=== PATIENT | male | born 1935 | race American Indian/Alaskan Native ===

== ENCOUNTER 2020-09-08 03:18 | Observation (INO) | payer MEDICARE ==
[2020-09-08] MEDS ORDERED: dilTIAZem 25 MG/5 ML INJ ONE (03:24)
[2020-09-08] MEDS ORDERED: SODIUM CHLORIDE 0.9% 1000 ML 1,000 ML IV ONE (03:30)
[2020-09-08] MEDS ORDERED: dilTIAZem 25 MG/5 ML INJ IV ONE (03:31)
--- NOTE | 2020-09-08 03:35 | Emergency Department Report ---
ED Shortness of Breath HPI - General Chief Complaint: Dyspnea/Respdistress Stated Complaint: SVT Time Seen by Provider: 09/08/20 03:29 Source: EMS Mode of arrival: Stretcher Limitations: Language Barrier - History of Present Illness Initial Comments: Patient is an 85-year-old male who presents emergency room with complaints of coffee-ground emesis and shortness of breath. Patient called EMS because his symptoms are worsening. Patient brought in by EMS. Report received meds. EMS states the patient was in SVT and they gave adenosine he converted with]. Patient states his shortness of breath better with rest and worse with exertion. Patient states he has stomach cancer in his started vomiting coffee-ground emesis just prior to having shortness of breath. Patient states he is throwing up coffee-ground emesis multiple times. Patient denies fever and chills. Patient denies diarrhea. Patient denies abdominal pain. Patient denies recent travel. Patient denies recent international travel. Patient denies exposure to the novel coronavirus. Patient denies sick contacts. Patient denies fever and chills. Patient denies cough. Patient denies diarrhea. Patient denies coming in contact with anybody with symptoms of the novel coronavirus. MD Complaint: shortness of breath -: Sudden Severity: severe Consistency: constant Improves With: rest Worsens With: exertion, movement Associated Symptoms: nausea/vomiting - Related Data Home Medications Medication Instructions Recorded Confirmed Last Taken Mirtazapine [Remeron 15mg TAB] 15 mg PO QHS 09/08/20 09/08/20 Unknown Montelukast [Singulair] 10 mg PO QPM 09/08/20 09/08/20 Unknown Omeprazole 40 mg PO QDAY 09/08/20 09/08/20 Unknown Simvastatin 20 mg PO QDAY 09/08/20 09/08/20 Unknown Sucralfate 1 gm PO QDAY 09/08/20 09/08/20 Unknown Allergies Allergy/AdvReac Type Severity Reaction Status Date / Time No Known Allergies Allergy Unverified 09/08/20 03:36 ED Review of Systems ROS: Stated complaint: SVT Other details as noted in HPI Constitutional: denies: chills, fever Eyes: denies: eye pain, eye discharge, vision change ENT: denies: ear pain, throat pain Respiratory: see HPI, shortness of breath. denies: cough, wheezing Cardiovascular: denies: chest pain, palpitations Endocrine: no symptoms reported Gastrointestinal: as per HPI, nausea, vomiting, hematemesis. denies: abdominal pain, diarrhea Genitourinary: denies: urgency, dysuria Musculoskeletal: denies: back pain, joint swelling, arthralgia Skin: denies: rash, lesions Neurological: denies: headache, weakness, paresthesias Psychiatric: denies: anxiety, depression Hematological/Lymphatic: denies: easy bleeding, easy bruising ED Past Medical Hx - Medications Home Medications: Home Medications Medication Instructions Recorded Confirmed Last Taken Type Mirtazapine [Remeron 15mg TAB] 15 mg PO QHS 09/08/20 09/08/20 Unknown History Montelukast [Singulair] 10 mg PO QPM 09/08/20 09/08/20 Unknown History Omeprazole 40 mg PO QDAY 09/08/20 09/08/20 Unknown History Simvastatin 20 mg PO QDAY 09/08/20 09/08/20 Unknown History Sucralfate 1 gm PO QDAY 09/08/20 09/08/20 Unknown History ED Physical Exam - General Limitations: Language Barrier General appearance: alert, in no apparent distress - Head Head exam: Present: atraumatic, normocephalic - Eye Eye exam: Present: normal appearance - ENT ENT exam: Present: mucous membranes moist - Neck Neck exam: Present: normal inspection - Respiratory Respiratory exam: Present: normal lung sounds bilaterally. Absent: respiratory distress, wheezes - Cardiovascular Cardiovascular Exam: Present: regular rate, normal rhythm. Absent: systolic murmur, diastolic murmur, rubs, gallop - GI/Abdominal GI/Abdominal exam: Present: soft, normal bowel sounds - Rectal Rectal exam: Present: deferred - Extremities Exam Extremities exam: Present: normal inspection - Back Exam Back exam: Present: normal inspection - Neurological Exam Neurological exam: Present: alert, oriented X3 - Psychiatric Psychiatric exam: Present: normal affect, normal mood - Skin Skin exam: Present: warm, dry, intact, normal color. Absent: rash ED Course Vital Signs 09/08/20 09/08/20 09/08/20 03:24 03:28 03:31 Pulse Rate 153 H 150 H 88 Respiratory 25 H 20 Rate Blood Pressure Blood Pressure 106/72 [Left] O2 Sat by Pulse 100 99 Oximetry 0309/08/20 09/08/20 03:50 04:01 04:15 Pulse Rate 83 82 75 Respiratory 12 15 12 Rate Blood Pressure 134/77 140/73 Blood Pressure [Left] O2 Sat by Pulse 98 99 100 Oximetry 09/08/20 04:31 Pulse Rate 82 Respiratory 17 Rate Blood Pressure 144/75 Blood Pressure [Left] O2 Sat by Pulse 96 Oximetry - Reevaluation(s) Reevaluation #1: Initial evaluation done. Patient in a tachycardic rhythm 145 -155 patient was given 20 mg IV push Cardizem and the patient converted. Patient's heart rate is less than 90. Patient have an EKG done. 09/08/20 03:30 Reevaluation #2: Patient's blood pressure was low after Cardizem and the patient was given fluids and his blood pressure has normalized. Patient's heart rate is still less than 90. Patient will have an EKG done. 09/08/20 03:37 Reevaluation #3: I discussed all results with patient. I discussed plan of care with patient. Patient agrees with plan of care and admission. Patient to be admitted to the hospitalist service. 09/08/20 05:19 - Consultations Consultation #1: Hospitalist consulted for admission. Hospitalist to admit patient. 09/08/20 05:19 ED Medical Decision Making - Lab Data Result diagrams: 09/08/20 03:43 09/08/20 03:43 - EKG Data -: EKG Interpreted by Me EKG shows normal: sinus rhythm, axis, intervals, QRS complexes, ST-T waves Rate: normal - Radiology Data Radiology results: report reviewed interpreted by me: Chest x-ray: No pneumonia, no pneumothorax, no foreign body, no osseous findings, no acute findings CHEST 1 VIEW 09/08/2020 3:53 AM INDICATION / CLINICAL INFORMATION: Dyspnea. COMPARISON: None available. FINDINGS: SUPPORT DEVICES: Right subclavian port appears appropriately positioned. HEART / MEDIASTINUM: No significant abnormality. LUNGS / PLEURA: No significant pulmonary or pleural abnormality. No pneumothorax. ADDITIONAL FINDINGS: Stent projecting over the lower thorax is likely an esophageal stent. IMPRESSION: 1. No acute findings. - Medical Decision Making Patient is an 85-year-old male who presents emergency room with complaints of shortness of breath and coffee-ground emesis. Patient brought in by EMS. EMS found the patient to be in SVT and hypotensive. Patient was given fluids by EMS and adenosine. Patient converted for short period of time and then was back into SVT. After patient arrived, the patient was placed on a desk monitor and found to be in SVT. After found to be in SVT, the patient was given Cardizem push immediately. Patient responded well and the patient's heart rate and rhy thm improved. Patient then became hypotensive was given fluids. Patient's blood pressure responded well to fluids. Patient's blood pressure normalized with fluids. Patient given Dilaudid for back pain. Patient has a history of stomach cancer and esophageal cancer and and the patient has esophageal stents. Patient had labs done which were essentially unremarkable. Patient's chest x- ray was negative for acute findings. I reviewed the chest x-ray personally. Patient had an EKG postconversion and it showed a sinus rhythm with no ST changes. I reviewed the EKG personally. Patient admitted to the hospital service for further evaluation treatment. - Differential Diagnosis Shortness of breath, coffee-ground emesis, SVT, electrolyte imbalance, anem Critical Care Time: Yes Critical care time in (mins) excluding proc time.: 35 Critical care attestation.: If time is entered above; I have spent that time in minutes in the direct care of this critically ill patient, excluding procedure time. Critical Care Time: 35 MINUTES ED Disposition Clinical Impression: SVT (supraventricular tachycardia), SOB (shortness of breath), Coffee ground emesis, Renal insufficiency Hypotension Qualifiers: Hypotension type: unspecified hypotension type Qualified Code(s): I95.9 - Hypotension, unspecified Nausea & vomiting Qualifiers: Vomiting type: unspecified Vomiting Intractability: non-intractable Qualified Code(s): R11.2 - Nausea with vomiting, unspecified Disposition: 09 OP ADMIT IP TO THIS HOSP Is pt being admited?: Yes Does the pt Need Aspirin: No Condition: Critical Time of Disposition: 05:19
--- NOTE | 2020-09-08 04:01 | XRay Report ---
CHEST 1 VIEW 09/08/2020 3:53 AM INDICATION / CLINICAL INFORMATION: Dyspnea. COMPARISON: None available. FINDINGS: SUPPORT DEVICES: Right subclavian port appears appropriately positioned. HEART / MEDIASTINUM: No significant abnormality. LUNGS / PLEURA: No significant pulmonary or pleural abnormality. No pneumothorax. ADDITIONAL FINDINGS: Stent projecting over the lower thorax is likely an esophageal stent. IMPRESSION: 1. No acute findings. Signer Name: Mirza Cueto MD Signed: 09/08/2020 3:57 AM Workstation Name: [id number]
[2020-09-08] MEDS ORDERED: HYDROmorphone 1 MG/1 ML INJ IV ONE (04:02)
[2020-09-08 04:03] LABS: Basophils % (Auto) 0.1 % (0.0-1.8); Hematocrit 42.4 % (35.5-45.6); Lymphocytes # (Auto) 1.4 K/mm3 (1.2-5.4); Lymphocytes % (Auto) 19.7 % (13.4-35.0); Mean Corpuscular HGB Conc 33 % (32-34); Mean Corpuscular Volume 87 fl (84-94); Monocytes # (Auto) 0.6 K/mm3 (0.0-0.8); Monocytes % (Auto) 8.9 % (0.0-7.3); Platelet Count 177 K/mm3 (140-440); Red Blood Count 4.87 M/mm3 (3.65-5.03); Red Cell Distribution Width 15.6 % (13.2-15.2)
[2020-09-08] MEDS ORDERED: ONDANSETRON 4 MG/2 ML INJ IV ONE (04:06)
[2020-09-08 04:23] LABS: Albumin 3.8 g/dL (3.9-5); Calcium 9.5 mg/dL (8.4-10.2)
[2020-09-08] MEDS ORDERED: dilTIAZem 30 MG TAB PO ONE (05:19)
[2020-09-08] MEDS ORDERED: ONDANSETRON 4 MG/2 ML INJ IV PRN (06:27)
[2020-09-08] MEDS ORDERED: ACETAMINOPHEN 325 MG TAB PO PRN (06:27)
[2020-09-08] MEDS ORDERED: SODIUM CHLORIDE 0.9% 1000 ML 1,000 ML IV SCH (06:30)
--- NOTE | 2020-09-08 06:35 | History and Physical Report ---
History of Present Illness Date of examination: 09/08/20 Date of admission: 09/08/20 05:22 Chief complaint: Coffee-ground emesis Shortness of breath History of present illness: 85-year-old [place]er male with known history of stomach cancer presenting to the emergency room today complaining of coffee-ground emesis and shortness of breath. Symptoms was said to have started earlier today and got worse later in the evening and therefore called the EMS. Patient was said to be in SVT and was given a dose of adenosine in route to the hospital. Shortness of breath is worse on exertion and improves upon resting. He denies any fever or chills, no abdominal pain, no diarrhea or constipation, no hematuria or dysuria, no headache or dizziness. Patient denies any sick contacts and no recent travel. Denies any contact with anyone with COVID-19. Upon arrival in the emergency room patient was given a dose of Cardizem with improvement in the heart rate. He became slightly hypotensive but blood pressure improved with IV fluid. Work-up in the emergency room was essentially within normal limits except for slightly elevated creatinine level 1.6. Patient is being admitted with coffee-ground emesis and SVT. Past History Past Medical History: cancer (Gastric cancer s/p surgery), hyperlipidemia Past Surgical History: bowel surgery Social history: no significant social history Family history: no significant family history Medications and Allergies Allergies Allergy/AdvReac Type Severity Reaction Status Date / Time No Known Allergies Allergy Unverified 09/08/20 03:36 Home Medications Medication Instructions Recorded Confirmed Last Taken Type Mirtazapine [Remeron 15mg TAB] 15 mg PO QHS 09/08/20 09/08/20 Unknown History Montelukast [Singulair] 10 mg PO QPM 09/08/20 09/08/20 Unknown History Omeprazole 40 mg PO QDAY 09/08/20 09/08/20 Unknown History Simvastatin 20 mg PO QDAY 09/08/20 09/08/20 Unknown History Sucralfate 1 gm PO QDAY 09/08/20 09/08/20 Unknown History Active Meds: Active Medications Acetaminophen (Acetaminophen 325 Mg Tab) 650 mg PO Q4H PRN PRN Reason: Pain MILD(1-3)/Fever >100.5/FLORES Sodium Chloride (Nacl 0.9% 1000 Ml) 1,000 mls @ 125 mls/hr IV DIRECT SULTANA Morphine Sulfate (Morphine 2 Mg/1 Ml Inj) 2 mg IV Q4H PRN PRN Reason: Pain, Moderate (4-6) Ondansetron HCl (Ondansetron 4 Mg/2 Ml Inj) 4 mg IV Q8H PRN PRN Reason: Nausea And Vomiting Sodium Chloride (Sodium Chloride 0.9% 10 Ml Flush Syringe) 10 ml IV BID SULTANA Sodium Chloride (Sodium Chloride 0.9% 10 Ml Flush Syringe) 10 ml IV PRN PRN PRN Reason: LINE FLUSH Review of Systems Constitutional: no fever, no chills Ears, nose, mouth and throat: no nasal congestion, no sore throat Cardiovascular: palpitations, no chest pain Respiratory: shortness of breath, no cough Gastrointestinal: coffee ground emesis, no abdominal pain, no nausea, no vomiting, no diarrhea Genitourinary Male: no dysuria, no hematuria, no flank pain, no nocturia Musculoskeletal: no neck pain, no low back pain Integumentary: no rash, no pruritis Neurological: no headaches, no confusion Psychiatric: no anxiety, no depression Exam - Constitutional Vitals: Temp Pulse Resp BP Pulse Ox 78 17 118/90 96 09/08/20 05:23 09/08/20 04:31 09/08/20 05:23 09/08/20 04:31 General appearance: Present: no acute distress, well-nourished - EENT Eyes: Present: PERRL, EOM intact. Absent: scleral icterus ENT: hearing intact, clear oral mucosa, dentition normal - Neck Neck: Present: supple, normal ROM - Respiratory Respiratory effort: normal Respiratory: bilateral: CTA - Cardiovascular Rhythm: regular Heart Sounds: Present: S1 & S2. Absent: gallop, systolic murmur, diastolic murmur, rub, click - Extremities Extremities: no ischemia, pulses intact, pulses symmetrical, No edema, normal temperature, normal color, Full ROM Peripheral Pulses: within normal limits - Abdominal General gastrointestinal: Present: soft, non-tender, non-distended, normal bowel sounds. Absent: mass - Integumentary Integumentary: Present: clear, warm, dry. Absent: rash - Musculoskeletal Musculoskeletal: strength equal bilaterally - Psychiatric Psychiatric: appropriate mood/affect, intact judgment & insight, memory intact - Neurologic Neurologic: CNII-XII intact, no moves all extremities HEART Score - HEART Score Troponin: Troponin T < 0.010 ng/mL (0.00-0.029) 09/08/20 03:43 Results - Labs CBC & Chem 7: 09/08/20 03:43 09/08/20 03:43 Labs: Abnormal lab results 09/08/20 09/08/20 Range/Units 03:43 03:43 RDW 15.6 H (13.2-15.2) % Sac % (Auto) 8.9 H (0.0-7.3) % Seg Neutrophils % 71.3 H (40.0-70.0) % Creatinine 1.6 H (0.8-1.3) mg/dL Glucose 133 H (75-100) mg/dL Albumin 3.8 L (3.9-5) g/dL Assessment and Plan - Patient Problems (1) Coffee ground emesis Current Visit: Yes Status: Acute Plan to address problem: Vomiting has since resolved since arriving in the emergency room. Patient will be made n.p.o. Consult placed to gastroenterology for evaluation. Patient has known history of stomach cancer and follows up with casino manager at [facility]. We will place on proton pump inhibitor. (2) SVT (supraventricular tachycardia) Current Visit: Yes Status: Acute Plan to address problem: Resolved with administration of IV Cardizem. Patient has no known history of cardiac arrhythmia. Will schedule echocardiogram and also check TSH. Consult placed to cardiology for evaluation. (3) Hypotension Current Visit: Yes Status: Acute Qualifiers: Hypotension type: unspecified hypotension type Qualified Code(s): I95.9 - H ypotension, unspecified Plan to address problem: Blood pressure remained stable with IV fluids infusion. Will monitor vital signs closely. (4) Renal insufficiency Current Visit: Yes Status: Acute Plan to address problem: Possibly secondary to volume depletion. We will continue on IV fluid and monitor BUN and creatinine. (5) DVT prophylaxis Current Visit: Yes Status: Acute Plan to address problem: Patient placed on sequential compression device. (6) Full code status Current Visit: Yes Status: Acute Plan to address problem: Patient is full code.
[2020-09-08] MEDS: MORPHINE 2 MG/1 ML INJ IV PRN ×2 (08:01→22:00)
--- NOTE | 2020-09-08 09:32 | Consultation ---
<JOY VALDEZ - Last Filed: 09/08/20 10:20> History of Present Illness Consult date: 09/08/20 Consult reason: other (SVT) History of present illness: This is a frail, 85 year old M who does not speak Chinese and has a history of stomach cancer post chemo and radiation therapy while living in [place] 2 years ago. He has since transitioned to [place] and is followed by doctors at [facility]. No prior cardiac history reported. Yesterday, daughter reports he underwent esophageal stent placement for dysphagia. Post procedure, patient has had several bouts of nausea with vomiting and overnight, the patient complained of shortness of breath and chest pain. EMS was called. On EMS arrival they found he was tachycardic. EMS strips shows narrow complex tachycardia, heart rate 161, which was treated with 12 mg of intravenous adenosine in the field. A repeat ECG shows sinus rhythm, no acute ischemic changes. Patient was brought in and admitted for evaluation. Chest x-ray is negative for acute findings. TSH is normal at 2.72. Currently, he is stable sinus rhythm on telemetry. Past History Past Medical History: cancer (Gastric cancer s/p surgery), hyperlipidemia Past Surgical History: bowel surgery, Other (esophageal stent) Social history: no significant social history Family history: no significant family history Medications and Allergies Allergies Allergy/AdvReac Type Severity Reaction Status Date / Time No Known Allergies Allergy Unverified 09/08/20 03:36 Home Medications Medication Instructions Recorded Confirmed Last Taken Type Mirtazapine [Remeron 15mg TAB] 15 mg PO QHS 09/08/20 09/08/20 Unknown History Montelukast [Singulair] 10 mg PO QPM 09/08/20 09/08/20 Unknown History Omeprazole 40 mg PO QDAY 09/08/20 09/08/20 Unknown History Simvastatin 20 mg PO QDAY 09/08/20 09/08/20 Unknown History Sucralfate 1 gm PO QDAY 09/08/20 09/08/20 Unknown History Metoprolol [Lopressor TAB] 50 mg PO BID #60 tablet 09/09/20 Unknown Rx amLODIPine 10 mg PO QDAY #30 tablet 09/09/20 Unknown Rx Active Meds: Active Medications Acetaminophen (Acetaminophen 325 Mg Tab) 650 mg PO Q4H PRN PRN Reason: Pain MILD(1-3)/Fever >100.5/FLORES Sodium Chloride (Nacl 0.9% 1000 Ml) 1,000 mls @ 125 mls/hr IV DIRECT SULTANA Last Admin: 09/08/20 08:03 Dose: 125 mls/hr Documented by: Morphine Sulfate (Morphine 2 Mg/1 Ml Inj) 2 mg IV Q4H PRN PRN Reason: Pain, Moderate (4-6) Last Admin: 09/08/20 08:01 Dose: 2 mg Documented by: Ondansetron HCl (Ondansetron 4 Mg/2 Ml Inj) 4 mg IV Q8H PRN PRN Reason: Nausea And Vomiting Pantoprazole Sodium (Pantoprazole 40 Mg Inj) 40 mg IV BID SULTANA Sodium Chloride (Sodium Chloride 0.9% 10 Ml Flush Syringe) 10 ml IV BID SULTANA Sodium Chloride (Sodium Chloride 0.9% 10 Ml Flush Syringe) 10 ml IV PRN PRN PRN Reason: LINE FLUSH Physical Examination Vital Signs Pulse 153 H 09/08/20 03:24 General appearance: no acute distress HEENT: Positive: PERRL Neck: Positive: trachea midline Cardiac: Positive: Reg Rate and Rhythm Lungs: Positive: Decreased Breath Sounds Neuro: Positive: Grossly Intact Extremities: Absent: edema Results 09/08/20 03:43 09/08/20 03:43 Cardiac Enzymes 09/08/20 Range/Units 03:43 AST 18 (5-40) units/L CBC 09/08/20 Range/Units 03:43 WBC 6.9 (4.5-11.0) K/mm3 RBC 4.87 (3.65-5.03) M/mm3 Hgb 14.0 (11.8-15.2) gm/dl Hct 42.4 (35.5-45.6) % Plt Count 177 (140-440) K/mm3 Lymph # (Auto) 1.4 (1.2-5.4) K/mm3 [place] # (Auto) 0.6 (0.0-0.8) K/mm3 Eos # (Auto) 0.0 (0.0-0.4) K/mm3 Baso # (Auto) 0.0 (0.0-0.1) K/mm3 Comprehensive Metabolic Panel 09/08/20 Range/Units 03:43 Sodium 142 (137-145) mmol/L Potassium 3.8 (3.6-5.0) mmol/L Chloride 102.3 (98-107) mmol/L Carbon Dioxide 27 (22-30) mmol/L BUN 18 (9-20) mg/dL Creatinine 1.6 H (0.8-1.3) mg/dL Glucose 133 H (75-100) mg/dL Calcium 9.5 (8.4-10.2) mg/dL AST 18 (5-40) units/L ALT 9 (7-56) units/L Alkaline Phosphatase 87 (35-129) units/L Total Protein 7.2 (6.3-8.2) g/dL Albumin 3.8 L (3.9-5) g/dL Assessment and Plan - Patient Problems (1) SVT (supraventricular tachycardia) Status: Acute Plan to address problem: Paroxysmal SVT s/p adenosine normal TSH at 2.72 Echocardiogram for LVEF assessment. Will treat paroxysmal SVT with metoprolol. <SLOAN LANDEROS - Last Filed: 09/11/20 07:08> History of Present Illness History of present illness: I SAW THIS PT & AGREE WITH THE Dx & Tx Physical Examination Vital Signs Pulse 153 H 09/08/20 03:24 Results 09/09/20 06:03 09/09/20 07:58
[2020-09-08] MEDS: PANTOPRAZOLE 40 MG INJ IV SCH ×2 (10:01→21:50)
--- NOTE | 2020-09-08 14:02 | Event Note ---
Date: 09/08/20 Patient seen and examined This is the second visit after midnight 85-year-old [place] male with known history of stomach cancer presented to the e mergency room with complaining of coffee-ground emesis and shortness of breath. EMS was called and per EMS patient was said to be in SVT and was given a dose of adenosine in route to the hospital. Upon arrival in the emergency room patient was given a dose of Cardizem with improvement in the heart rate. He became slightly hypotensive but blood pressure improved with IV fluid. Serum creatinine history showed elevated creatinine level 1.6. Patient was admitted for coffee-ground emesis and SVT. Cardiology and GI consulted. Patient now in normal sinus rhythm, Echocardiogram ordered for LVEF assessment. Plan to treat paroxysmal SVT with metoprolol Continue IV fluid, wait for GI recommendation Continue supportive care, BMP in the morning
--- NOTE | 2020-09-08 14:55 | Anesthesia Consultation ---
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
[2020-09-08] MEDS ORDERED: propofoL 200 MG/20 ML VIAL IV ONE (14:56)
--- NOTE | 2020-09-08 14:56 | Anesthesia Day of Surgery ---
Anesthesia Day of Surgery - Day of Surgery Patient Examined: Yes Patient H&P Reviewed: Yes Patient is NPO: Yes
--- NOTE | 2020-09-08 15:17 | Post Operative Note ---
Pre-op diagnosis: gi bleed Post-op diagnosis: same Findings: EGD: noted metal esophageal stent extending from 31 cm from gums to stomach w/ noted small coffee material - visualized stomach grossly intact - no other findings or interventions - stent not traversed given recently placed Procedure: EGD Anesthesia: MAC Surgeon: ELYSIA ANGELO Estimated blood loss: none Pathology: list Specimen disposition: to lab Condition: stable Disposition: floor
--- NOTE | 2020-09-08 15:36 | Operative Report ---
PROCEDURE: EGD. INDICATION: 1. Esophageal and stomach cancer. 2. Coffee emesis. MEDICATIONS: Propofol per PRECISION LENS POLISHER. COMPLICATIONS: None. DESCRIPTION OF PROCEDURE: The patient was brought to procedure suite. The patient had the procedure discussed with him and his at length. All risks, complications, and benefits were discussed after which consent was gotten for the procedure performed. The patient was placed in left lateral decubitus position. Mouth block was placed in the patient's oral cavity. After adequate sedation and medication as above, endoscope was introduced into the mouth and brought to level of the distal esophagus. No retroflexion views performed. The patient's vital signs remained stable throughout the procedure. FINDINGS: There was noted to be an esophageal stent, which was then placed 31 cm from the gums. There was noted to be some coffee material within the area of the stent. The stomach was noted and appeared grossly intact, but was not entered. No active bleeding was noted. Given stent was recently placed, no attempt was made to fully traverse the stent. No other interventions were performed. The patient tolerated the procedure well. No complications during the procedure. IMPRESSION: 1. Metal esophageal stent as noted above with no signs of bleeding. 2. Stomach visualized in the distance, but no signs of bleeding. 3. Given the stent was recently placed, no attempt was made to traverse the stent. 4. No other interventions performed. RECOMMENDATIONS: 1. PPI b.i.d. 2. Clear liquid diet. 3. If H and H stable in a.m., okay to discharge from GI standpoint with followup with primary, GI. JOB# [id number] CAB/NTS
--- NOTE | 2020-09-08 16:56 | Post Anesthesia Evaluation ---
- Post Anesthesia Evaluation Patient Participated: Yes Airway Patent: Yes Stable Respiratory Function: Yes Nausea/Vomiting: No Temp > 96.8F: Yes Pain Manageable: Yes Adequeate Hydration: Yes Anesthesia Complications: No
--- NOTE | 2020-09-08 21:29 | Consultation ---
REFERRING PHYSICIAN: Jeevan Abad M.D. INDICATION: 1. Coffee emesis. 2. Gastrointestinal bleed. HISTORY OF PRESENT ILLNESS: The patient is an 85-year-old black male with history of esophageal and stomach cancer, presented to the Emergency Room with coffee grounds and SVT. The patient presented with symptoms of shortness of breath, which started earlier in the day. He reported no chest pain. Denies any black stools. The patient subsequently came to Emergency Room where he was noted to be in SVT, was given adenosine with good result. He was noted to have coffee-ground emesis. He subsequently was admitted for GI evaluation. The patient reportedly had esophageal stent placed in the last 1-2 days for esophageal and stomach cancer. PAST MEDICAL HISTORY: 1. Esophageal and stomach cancer. 2. High cholesterol. MEDICATIONS: Reviewed and updated in chart. ALLERGIES: No known drug allergies. SOCIAL HISTORY: Denies alcohol, tobacco, or drug use. FAMILY HISTORY: Negative for colon cancer, IBD, or liver disease. REVIEW OF SYSTEMS: GENERAL: Reports some weakness. HEENT: No visual complaints or tinnitus. PULMONARY: No shortness of breath. No cough. No chest pain. GASTROINTESTINAL: Reports coffee emesis. All points of 13-point review of systems otherwise negative. PHYSICAL EXAMINATION: VITAL SIGNS: Temperature of 98.9, pulse 70, respirations 20, blood pressure 160/80. GENERAL: Fairly nourished with no acute distress. HEENT: Pupils equal, round and reactive. PULMONARY: Clear to auscultation bilaterally. CARDIOVASCULAR: Regular rhythm. Normal S1, S2. ABDOMEN: Palpable soft. SKIN: No obvious rashes. LABORATORY DATA: Pertinent for white count of 6.9, hemoglobin and hematocrit of 14 and 42, platelet count of 177. Chem-7 within normal limits. LFTs within normal limits. ASSESSMENT AND PLAN: An 85-year-old male with esophageal stomach cancer, status post recent esophageal stent placement, now with coffee emesis. I suspect some irritation from where the stent was placed. Management is noted below. PLAN: 1. PPI IV b.i.d. 2. Follow hematocrit and transfuse as needed. 3. Given coffee-ground emesis, we will consider EGD. 4. Follow on further recommendation based on progress and results of the above. JOB# [id number] SANTO/NTS
[2020-09-08] MEDS ORDERED: METOPROLOL TARTRATE 25 MG TAB PO SCH (22:00)
[2020-09-08] MEDS: D5W/0.9% NACL 1,000 ML IV SCH (22:05)
[2020-09-09 07:20] LABS: Basophils % (Auto) 0.5 % (0.0-1.8); Eosinophils % (Auto) 0.2 % (0.0-4.3); Hemoglobin 13.8 gm/dl (11.8-15.2); Lymphocytes # (Auto) 1.3 K/mm3 (1.2-5.4); Lymphocytes % (Auto) 15.7 % (13.4-35.0); Mean Corpuscular HGB Conc 33 % (32-34); Mean Corpuscular Volume 87 fl (84-94); Monocytes # (Auto) 0.7 K/mm3 (0.0-0.8); Monocytes % (Auto) 8.6 % (0.0-7.3); Platelet Count 182 K/mm3 (140-440); Red Blood Count 4.82 M/mm3 (3.65-5.03)
[2020-09-09 07:37] LABS: INR 1.09 (0.87-1.13)
[2020-09-09 07:46] LABS: BUN/Creatinine Ratio TNR; Blood Urea Nitrogen TNR mg/dL (9-20)
[2020-09-09 07:47] LABS: Calcium TNR mg/dL (8.4-10.2); Hemolysis Index TNR
[2020-09-09] MEDS: MORPHINE 2 MG/1 ML INJ IV PRN ×2 (07:47→17:37)
[2020-09-09 08:30] LABS: BUN/Creatinine Ratio 15; Blood Urea Nitrogen 16 mg/dL (9-20); Calcium 8.8 mg/dL (8.4-10.2); Hemolysis Index 16
[2020-09-09] MEDS ORDERED: METOPROLOL TARTRATE 25 MG TAB PO SCH (10:00)
[2020-09-09] MEDS ORDERED: amLODIPine 10 MG TAB PO SCH (10:00)
[2020-09-09] MEDS ORDERED: NON-FORMULARY EACH (Simvastatin [Simvastatin] 20 MG Tablet) PO SCH (10:00)
[2020-09-09] MEDS ORDERED: PANTOPRAZOLE 40 MG TAB PO SCH (10:00)
[2020-09-09] MEDS: D5W/0.9% NACL 1,000 ML IV SCH (10:42)
--- NOTE | 2020-09-09 10:50 | Progress Note ---
Assessment and Plan 1. Paroxysmal supraventricular tachycardia currently converted to sinus rhythm. 2. History of gastric cancer status post stenting of the esophagus 3. Hypelipidemia Plan Cardiac merida stable check Echocardiogram. No EKGs of supraventricular tachycardia available for review we will continue to monitor on telemetry. Electrophysiology consult. Subjective Date of service: 09/09/20 Interval history: No cardiac symptoms. Objective Vital Signs Temp Pulse Resp BP Pulse Ox 09/09/20 10:45 72 178/96 09/09/20 07:47 100.1 F H 79 20 188/96 93 09/09/20 03:53 100.0 F H 79 18 178/94 95 09/08/20 23:50 78 09/08/20 23:39 98.1 F 74 18 168/87 98 09/08/20 21:50 80 176/90 09/08/20 19:59 100.7 F H 80 18 176/90 95 09/08/20 18:00 71 09/08/20 16:10 98.7 F 54 L 117/80 93 09/08/20 16:00 98.6 F 69 19 152/83 96 09/08/20 15:45 71 19 157/83 99 09/08/20 15:30 73 16 153/88 99 09/08/20 15:25 71 15 160/84 97 09/08/20 15:20 75 14 158/88 95 09/08/20 15:15 98.1 F 89 13 155/77 96 09/08/20 14:40 98.9 F 78 20 164/84 92 09/08/20 13:11 99.0 F 74 164/79 97 09/08/20 10:50 66 - Physical Examination General: Appears Well HEENT: Positive: PERRL Neck: Positive: trachea midline. Negative: JVD/HJR Cardiac: Positive: Regular Rate, S1/S2. Negative: S3, S4 Lungs: Positive: clear to auscultation, No Wheeze, Rales, Rhonchi Neuro: Positive: Grossly Intact Abdomen: Positive: Soft Extremities: Absent: edema - Labs and Meds Coagulation 09/09/20 Range/Units 06:03 PT 13.9 (12.2-14.9) Sec. INR 1.09 (0.87-1.13) CBC 09/09/20 Range/Units 06:03 WBC 8.4 (4.5-11.0) K/mm3 RBC 4.82 (3.65-5.03) M/mm3 Hgb 13.8 (11.8-15.2) gm/dl Hct 42.0 (35.5-45.6) % Plt Count 182 (140-440) K/mm3 Lymph # (Auto) 1.3 (1.2-5.4) K/mm3 Dickenson # (Auto) 0.7 (0.0-0.8) K/mm3 Eos # (Auto) 0.0 (0.0-0.4) K/mm3 Baso # (Auto) 0.0 (0.0-0.1) K/mm3 Comprehensive Metabolic Panel 09/09/20 09/09/20 Range/Units 06:03 07:58 Sodium TNR 138 Potassium TNR 4.0 Chloride TNR 103.8 Carbon Dioxide TNR 26 BUN TNR 16 Creatinine TNR 1.1 Glucose TNR 133 H Calcium TNR 8.8
--- NOTE | 2020-09-09 12:18 | Discharge Summary ---
Providers - Providers Date of Admission: 09/08/20 05:22 Date of discharge: 09/09/20 Attending physician: SUE AMARO 09/08/20 06:27 Consult to Physician [CONS] Routine Comment: Consulting Provider: JOHANA WEBB Physician Instructions: Reason For Exam: Coffee-ground emesis. History of stomach cancer 09/08/20 06:29 Consult to Cardiology [CONS] Routine Consulting Provider: DEDRICK GONZALEZ Reason For Exam: Supraventricular tachycardia Primary care physician: PRN OCCUPATIONAL THERAPIST Hospitalization Condition: Critical Pertinent studies: 2d echo CXR Hospital course: 85-year-old [place] male with known history of stomach cancer presented to the emergency room with complaining of coffee-ground emesis and shortness of breath. EMS was called and per EMS patient was said to be in SVT and was given a dose of adenosine in route to the hospital. EMS strips shows narrow complex tachycardia, heart rate 161. Upon arrival in the emergency room patient was given a dose of Cardizem with improvement in the heart rate. He became slightly hypotensive but blood pressure improved with IV fluid. Serum chemistry showed elevated creatinine level 1.6. Patient was admitted for coffee-ground emesis and SVT. Chest x-ray is negative for acute findings. TSH is normal at 2.72. Cardiology and GI consulted. Cardiology recommended to initiate beta-tamie for paroxysmal SVT. Patient now in normal sinus rhythm, Echocardiogram ordered for LVEF assessment and 2d echo showed MILD pulmonary HTN and Ef 65%. Serum creatinine improved with IV fluid, status post EGD by GI. EGD findings: noted metal esophageal stent extending from 31 cm from gums to stomach w/ noted small coffee material - visualized stomach grossly intact - no other findings or interventions - stent not traversed given recently placed Patient was tolerating p.o. full liquid diet and recommended to advance as tolerated. Patient was cleared by cardiology and GI for discharge. Patient was then discharged home in stable condition with outpatient follow-up. Discharge plan and management was thoroughly discussed with patient daughter by phone. Discharge diagnosis: Upper GI bleed, status post EGD with no obvious findings, H&H was stable Paroxysmal SVT, now NSR, treated with beta-tamie Hypotension, resolved Hypertension, placed on Norvasc and metoprolol. Further follow-up as outpatient PATY, likely vasomotor nephropathy, resolved with IV fluid History of stomach cancer, continue outpatient follow-up Disposition: [id number] HOME UNDER HOME [facility] Time spent for discharge: 34 minutes Core Measure Documentation - Palliative Care Palliative Care/ Comfort Measures: Not Applicable - Core Measures Any of the following diagnoses?: none Exam - Physical Exam Narrative exam: General appearance: Present: no acute distress, well-nourished - EENT Eyes: Present: PERRL, EOM intact. Absent: scleral icterus ENT: hearing intact, clear oral mucosa, dentition normal - Neck Neck: Present: supple, normal ROM - Respiratory Respiratory effort: normal Respiratory: bilateral: CTA - Cardiovascular Rhythm: regular Heart Sounds: Present: S1 & S2. Absent: gallop, systolic murmur, diastolic murmur, rub, click - Extremities Extremities: no ischemia, pulses intact, pulses symmetrical, No edema, normal temperature, normal color, Full ROM Peripheral Pulses: within normal limits - Abdominal General gastrointestinal: Present: soft, non-tender, non-distended, normal bowel sounds. Absent: mass - Integumentary Integumentary: Present: clear, warm, dry. Absent: rash - Musculoskeletal Musculoskeletal: strength equal bilaterally - Psychiatric Psychiatric: appropriate mood/affect, intact judgment & insight, memory intact - Neurologic Neurologic: CNII-XII intact, no moves all extremities - Constitutional Vitals: Temp Pulse Resp BP Pulse Ox 100.1 F H 72 20 158/96 93 09/09/20 07:47 09/09/20 10:45 09/09/20 07:47 09/09/20 10:45 09/09/20 07:47 Plan Activity: fall precautions Weight Bearing Status: Non-Weight Bearing Diet: advance as tolerated Additional Instructions: Follow-up with supervisor lens generating in 1 week Follow up with: DENISE MUNIZ MD [Primary Care Provider] - 7 Days DEDRICK GONZALEZ MD [Staff Physician] - 7 Days Prescriptions: amLODIPine 10 mg PO QDAY #30 tablet Metoprolol [Lopressor TAB] 50 mg PO BID #60 tablet
[2020-09-09 17:05] VITALS: BP 161/80
[2020-09-09] MEDS ORDERED: MONTELUKAST 10 MG TAB PO SCH (18:00)
[2020-09-09] MEDS ORDERED: MIRTAZAPINE 15 MG TAB PO SCH (22:00)
[2020-09-09] MEDS ORDERED: PRAVASTATIN 40 MG TAB PO SCH (22:00)
== END 2020-09-09 19:38 | disposition home health service (06) ==
LOC: ED 03:18 → 4A 05:22
PROVIDERS: ADMIT Internal Medicine Geriatric Medicine; ATTEND Internal Medicine
DX: K92.0 Hematemesis (principal); Z20.822 Contact with and (suspected) exposure to COVID-19; I47.1 Supraventricular tachycardia; I95.9 Hypotension, unspecified; N28.9 Disorder of kidney and ureter, unspecified; R06.03 Acute respiratory distress; E78.5 Hyperlipidemia, unspecified; E78.00 Pure hypercholesterolemia, unspecified; Z98.84 Bariatric surgery status; Z98.890 Other specified postprocedural states; Z85.01 Personal history of malignant neoplasm of esophagus; Z85.028 Personal history of other malignant neoplasm of stomach
CPT/HCPCS: 36415; 43235; 71045; 80048; 80053; 82962; 84439; 84443; 84484; 85025; 85610; 93005; 93306; 96361; 96374; 96375; 96376; 99291; C9113; G0378; J1170; J2270; J2405; J2704; J7030; J7042; U0003